=== PATIENT | female | born 2000 | race Caucasian/White ===

== ENCOUNTER 2021-01-15 21:52 | Outpatient (CLI) | payer MEDICAID, SELFPAY ==
[2021-01-15 22:15] VITALS: BP 116/69; PULSE 108; RESP 18; TEMP 36.9; O2SAT 97; BMI 35.5
[2021-01-15 22:21] VITALS: BMI 35.5
[2021-01-15 22:32] LABS: Microscopic, Urine URINE MICROSCOPIC (MICROSCOPIC)
[2021-01-15 22:36] LABS: Appearance,Urine CLEAR (Clear); Bilirubin,Urine Negative (Negative); Blood, Urine Negative (Negative); Color,Urine STRAW (Yellow); Glucose,Urine (UA) 2+ (Negative); Ketones,Urine Negative (Negative); Leukocyte Esterase,Urine Negative (Negative); Nitrate,Urine Negative (Negative); PH,Urine 7.5 (5.0-8.5); Protein,Urine Negative (Negative); Specific Gravity, Urine 1.015 (1.005-1.030); Urobilinogen,Urine 0.2 EU/dl (0.2)
[2021-01-15 22:44] LABS: Bacteria,Urine 1+ /lpf
[2021-01-15 22:45] LABS: Fetal Membrane Rupture (Rapid) Negative (Negative)
[2021-01-15 22:47] LABS: Amphetamine/Metha Screen,Urine Negative ng/ml (<1000); Benzodiazepines Screen,Urine Negative ng/ml (<200)
[2021-01-15 22:48] LABS: Barbiturates Screen,Urine Negative ng/ml (<200)
[2021-01-15 22:49] LABS: Cannabinoid Screen,Urine Negative ng/ml (<50); Cocaine Screen,Urine Negative ng/ml (<300)
[2021-01-15 22:50] LABS: Methadone Screen,Urine Negative ng/ml (<300)
[2021-01-15 22:51] LABS: Opiate Screen,Urine Negative ng/ml (<300); Phencyclidine Screen,Urine Negative ng/ml (<25)
[2021-01-16 00:15] LABS: Fetal Membrane Rupture (Rapid) Negative (Negative)
--- NOTE | 2021-01-16 00:40 | HMH.OBDCSM ---
General - General Discharge date: 01/16/21 HPI - History of Present Illness History of present illness: She is a 20-year-old 2 para 1 at 25 weeks gestational age. She was at a [employer] earlier this evening and when she was leaving and walking out of the park she noticed that she was fluid trickling down her legs. She has a construction management assistant in [place] and has had good care till now. Hospital Course Hospital Course: On arrival here she soaked through about 3 pads. She had emptied her bladder and she continued to trickle fluid after that. We tested the fluid with AmniSure twice and they were both negative. An ultrasound showed that the fetus was active in the cephalic presentation with an amniotic fluid X of 13. I checked her cervix and it was closed 25% effaced and soft with the presenting part high. We have given her a dose of azithromycin 500 mg. She has received 12 mg of Celestone. She is allergic to ampicillin and amoxicillin so we have not given her this. We will await her arrival at for her to have her other dose of antibiotics. She is not bel and the nonstress test is reactive. We will plan to have her go down by private vehicle to the obstetrical department triage at [facility]. I spoke with Dr. Martir Patel and he will accept her in transfer. Her condition on discharge is stable. Objective Vital signs: Temp Pulse Resp BP Pulse Ox 98.4 F 108 H 18 116/69 97 01/15/21 22:15 01/15/21 22:15 01/15/21 22:15 01/15/21 22:15 01/15/21 22:15 no acute distress - *Routine HEENT Exam Head: Present: normocephalic Eye: Present: EOMI, PERRL ENT: Present: mucous membranes moist - *Routine Abdominal Exam Present: soft, normoactive bowel sounds. Absent: tenderness Results Labs on day of discharge: Labs from last 24 hours 01/15/21 01/15/21 01/15/21 23:50 22:05 22:00 Urine Color Urine Appearance Urine pH Ur Specific [place] Urine Protein Urine Glucose (UA) Urine Ketones Urine Blood Urine Nitrate Urine Bilirubin Urine Urobilinogen Ur Leukocyte Esterase Urine WBC Ur Squamous Epith Cells Urine Bacteria Membrane Rupture Negative Negative Urine Opiates Screen Negative Urine Methadone Screen Negative Ur Barbituates Screen Negative Ur Phencyclidine Scrn Negative Ur Amphetamines Screen Negative U Benzodiazepines Scrn Negative Urine Cocaine Screen Negative U Marijuana (THC) Screen Negative 01/15/21 22:00 Urine Color Straw Urine Appearance Clear Urine pH 7.5 Ur Specific [place] 1.015 Urine Protein Negative Urine Glucose (UA) 2+ Urine Ketones Negative Urine Blood Negative Urine Nitrate Negative Urine Bilirubin Negative Urine Urobilinogen 0.2 Ur Leukocyte Esterase Negative Urine WBC 3-5 Ur Squamous Epith Cells 5-10 Urine Bacteria 1+ Membrane Rupture Urine Opiates Screen Urine Methadone Screen Ur Barbituates Screen Ur Phencyclidine Scrn Ur Amphetamines Screen U Benzodiazepines Scrn Urine Cocaine Screen U Marijuana (THC) Screen DS: Diagnosis - Discharge Diagnosis (1) premature rupture of membranes, antepartum Status: Acute Discharge Plan - Patient Discharge Instructions ACTIVITY: No heavy lifting DIET: continue same diet - Follow up Plan Disposition: Xfer Short-Term Hosp Condition at discharge:: Stable - Problem Reconciliation Problems Reviewed?: Yes
== END 2021-01-16 01:20 | disposition short-term general hospital (02) ==
LOC: OBOUT 21:56 → OB 21:58
PROVIDERS: Visit Provider Nurse Practitioner Obstetrics & Gynecology
DX: O42.90 Premature rupture of membranes, unspecified as to length of time between rupture and onset of labor, unspecified weeks of gestation (principal); Z3A.25 25 weeks gestation of pregnancy
CPT/HCPCS: 59025; 80305; 81001; 84112; 96365; 96372; G0463